=== PATIENT | female | born 1970 | race African-American/Black ===

== ENCOUNTER 2020-01-24 00:31 | Observation (INO) | payer SELFPAY ==
[2020-01-24] MEDS ORDERED: NITROGLYCERIN SUBLINGUAL 1/150 0.4 MG TAB SL ONE ×2 (01:00→01:05)
--- NOTE | 2020-01-24 01:04 | PDOC ---
Attending Attestation - Resident Resident Name: Marc Dempsey - ED Attending Attestation I have performed the following: I have examined & evaluated the patient, The case was reviewed & discussed with the resident, I agree w/resident's findings & plan - HPI HPI: 01/24/20 01:40 Pt comes with fatigue; she is obese and she has HTN and she has a SOLIS. She took HCTZ for the 1st time today and despite it, her BP is high - Physicial Exam PE: 01/24/20 01:41 Morbidly obese. Heart Lungs clear abd soft NT ND no flank pain no pitting edema of legs. - Medical Decision Making 01/24/20 01:42 Pt's BP is 130s now. 01/24/20 02:52 WBC normal 01/24/20 04:52 Chem is normal; K+ is slightly high, but it is a hemolyzed specimen Heart Score/ECG Review - History History: Highly suspicious - Electrocardiogram EKG: Normal - Age Age: 45-65 - Risk Factors Risk Factors Heart Score: Yes Hx Hypertension, Yes Hx Obesity Based on the list above the patient has:: 1-2 risk factors - Troponin Troponin: </= normal limit - Score Heart Score - Total: 4 Discharge - Discharge Information Problems reviewed: Yes Clinical Impression/Diagnosis: Chest pain, Hypertension - Follow up/Referral - Patient Discharge Instructions - Post Discharge Activity
--- NOTE | 2020-01-24 01:22 | PDOC ---
History of Present Illness - General Chief Complaint: Blood Pressure Problem Stated Complaint: HIGH BP Time Seen by Provider: 01/24/20 00:57 - History of Present Illness Initial Comments: 01/24/20 01:15 49 yo F PMH HTN, PCOS, presenting with high blood pressure. Patient states that she had previously had her blood pressure treated with HCTZ, however, she ran into a premium increase and has not been on any anti-hypertensive medications in several years. Notes that she normally cooks for herself, but ate something from [employer] today, noted home BP of 200s/100s. Complains of mild throbbing L sided headache. Endorses episode of chest pain radiating into her left arm earlier today, and ongoing fatigue. Denies SOB, N/V, fevers/chills, abd pain. Past History - Past Medical History Allergies/Adverse Reactions: Allergies Allergy/AdvReac Type Severity Reaction Status Date / Time Penicillins Allergy Difficulty Verified 01/24/20 00:48 Breathing Home Medications: Ambulatory Orders Amlodipine Besylate [Norvasc -] 5 mg PO DAILY #30 tablet 01/25/20 Atorvastatin Ca [Lipitor] 40 mg PO HS #30 tablet 01/25/20 Hydrochlorothiazide [Hctz -] 25 mg PO DAILY #30 tablet 01/25/20 Metformin HCl [Glucophage] 500 mg PO BID #60 tablet 01/25/20 Asthma: Yes COPD: No - Immunization History Immunization Up to Date: Yes - Psycho Social/Smoking Cessation Hx Smoking History: Never smoked Have you smoked in the past 12 months: No Information on smoking cessation initiated: No Hx Alcohol Use: No Drug/Substance Use Hx: No Substance Use Type: None Review of Systems - Review of Systems Comments:: 01/24/20 01:23 GENERAL/CONSTITUTIONAL: endorses fatigue. Denies fever, chills, diaphoresis, generalized weakness, malaise, loss of appetite, weight change HEAD, EYES, EARS, NOSE AND THROAT: denies rhinorrhea, nasal congestion, throat pain, throat swelling, difficulty swallowing, mouth swelling, ear pain, eye pa in, visual changes NEUROLOGIC: endorses throbbing mild L sided headache. Denies focal weakness or paresthesias, dizziness, unsteady gait, seizure, mental status changes, bladder or bowel incontinence CARDIOVASCULAR: endorses episode of chest pain radiating into L arm, now resolved. Denies syncope, palpitations, irregular heart rate, lightheadedness, peripheral edema RESPIRATORY: denies cough, shortness of breath, dyspnea with exertion, orthopnea, wheezing, stridor, hemoptysis GASTROINTESTINAL: denies abdominal pain, abdominal distension, nausea, vomiting, diarrhea, constipation, melena, hematochezia GENITOURINARY: denies dysuria, frequency, urgency, hesitancy, hematuria, flank pain, genital pain MUSCULOSKELETAL: denies myalgia, arthralgia, joint swelling, back pain, neck pain SKIN: denies rash, itching, pallor HEMATOLOGIC/IMMUNOLOGIC: denies easy bleeding, easy bruising, lymphadenopathy, frequent infections ENDOCRINE: denies unexplained weight gain, unexplained weight loss, heat intole meka, cold intolerance PSYCHIATRIC: denies anxiety, depression, suicidal or homicidal ideation, tonny lucinations *Physical Exam - Vital Signs Last Vital Signs Temp Pulse Resp BP Pulse Ox 97.7 F 76 20 202/93 H 98 01/24/20 00:48 01/24/20 00:48 01/24/20 00:48 01/24/20 00:48 01/24/20 00:48 - Physical Exam 01/24/20 01:23 Gen: well-developed, well-nourished, NAD Neuro: AAOX4, CN II-XII intact, FTN intact, EOMI, PERRLA, 5/5 strength, SILT HEENT: atraumatic, normocephalic Neck: trachea midline, supple CV: regular rate, regular rhythm, no murmurs, rubs, or gallops Pulm: CTA b/l, no wheezing Abd: soft, non-distended, non-tender MSK: full ROM, intact pulses Extr: no edema, no deformities Skin: warm, dry Heart Score/ECG Review - History History: Moderately suspicious - Electrocardiogram EKG: Normal - Age Age: 45-65 - Risk Factors Risk Factors Heart Score: Yes Hx Hypertension, Yes Positive family hx of cardiac disease, Yes Hx Obesity Based on the list above the patient has:: >/=3 risk factors or Hx atherosclerotic disease - Troponin Troponin: </= normal limit - Score Heart Score - Total: 4 ED Treatment Course - LABORATORY CBC & Chemistry Diagram: 01/24/20 06:00 01/24/20 06:00 Medical Decision Making - Medical Decision Making 01/24/20 01:22 Concern for hypertensive emergency. BP improved with nitroglycerin X2. - CBC, CMP - EKG, trop - CXR - PT & PTT - likely admit tele obs 01/24/20 02:00 EKG normal sinus at 84 bpm, no acute ischemia. 01/24/20 03:26 K 5.8, but with moderate hemolysis. Will resend. However, trop negative. Will admit. Discharge - Discharge Information Problems reviewed: Yes Clinical Impression/Diagnosis: Chest pain, Hypertension Condition: Stable - Follow up/Referral - Patient Discharge Instructions - Post Discharge Activity
[2020-01-24 02:38] LABS: BASO % 0.6 % (0-2.0); EOS % 1.8 % (0-4.5); HEMATOCRIT 40.1 % (32.4-45.2); HEMOGLOBIN 13.5 GM/dL (10.7-15.3); LYMPH % 37.9 % (8-40); MCHC 33.7 g/dl (32.0-36.0); MEAN CELL VOLUME 92.1 fl (80-96); MEAN PLT VOLUME 9.1 fl (7.5-11.1); MONO % 11.3 % (3.8-10.2); NEUT % 48.4 % (42.8-82.8); PLATELET COUNT 309 K/MM3 (134-434); RBC 4.35 M/mm3 (3.60-5.2); RDW 13.7 % (11.6-15.6); WHITE BLOOD COUNT 5.6 K/mm3 (4.0-10.0)
[2020-01-24] MEDS ORDERED: ASPIRIN 81 MG CHEWABLE TABLETS PO ONE (02:42)
[2020-01-24] MEDS ORDERED: FAMOTIDINE 20 MG/50 ML IVPB 20 MG/50 ML MG IVPB ONE ×2 (02:42→02:51)
[2020-01-24] MEDS ORDERED: MAG HYDROX/AL HYDROX/SIMETH 30 ML UNIT-DOSE CUP PO ONE (02:42)
[2020-01-24] MEDS ORDERED: MAG HYDROX/AL HYDROX/SIMETH 30 ML UNIT-DOSE CUP ONE (02:51)
[2020-01-24] MEDS ORDERED: ASPIRIN 81 MG CHEWABLE TABLETS ONE (02:51)
[2020-01-24 02:53] LABS: INR 0.97 (0.83-1.09); PROTHROMBIN TIME (PATIENT) 11.5 SEC (9.7-13.0)
[2020-01-24 02:55] LABS: ACTIVATED PTT 38.5 SECONDS (25.2-36.5)
[2020-01-24 03:21] LABS: ALBUMIN 3.2 g/dl (3.4-5.0); ALK PHOS 85 U/L (45-117); ANION GAP 9 MMOL/L (8-16); BILIRUBIN,TOTAL 0.4 mg/dL (0.2-1); BLOOD UREA NITROGEN 17.2 mg/dL (7-18); CALCIUM 8.7 mg/dL (8.5-10.1); CHLORIDE 104 mmol/L (98-107); CO2 24 mmol/L (21-32); GLUCOSE,RANDOM 133 mg/dL (74-106); SGOT/AST 67 U/L (15-37); SGPT/ALT 34 U/L (13-61); SODIUM 136 mmol/L (136-145); TOT PROT 8.1 g/dl (6.4-8.2)
[2020-01-24 03:27] LABS: POTASSIUM 5.8 mmol/L (3.5-5.1)
--- NOTE | 2020-01-24 04:12 | PN ---
Teaching Attending Note Name of Resident: [place] ATTENDING PHYSICIAN STATEMENT I saw and evaluated the patient. I reviewed the resident's note and discussed the case with the resident. I agree with the resident's findings and plan as documented. SUBJECTIVE: Patient is a 49 year old woman with a PMH of HTN, Penicillin allergy and PCOS wh o presents with high blood pressure. Patient states that she had previously had her blood pressure treated with HCTZ, however, she ran into a premium increase and has not been on any anti-hypertensive medications in several years. Notes that she normally cooks for herself, but ate something from [employer] today, noted home BP of 200s/100s. Complains of mild throbbing left sided headache. Also had an episode of chest pain radiating into her left arm earlier today and ongoing fatigue. Denies SOB, nausea, vomiting, diaphoresis, fevers, chills, abdominal pain, dysuria, diarrhea or urgency. Denies alcohol, tobacco or illicit drug use. No sick contacts or recent travels. OBJECTIVE: Alert Vital Signs Period Temp Pulse Resp BP Sys/Caba Pulse Ox Last 24 Hr 97.7 F 76-88 20-20 147-202/93-98 98-98 HEENT: No Jaundice, eye redness or discharge, PERRLA, EOMI. No papiledema; Normocephalic, atraumatic. External ears are normal and hearing is grossly intact. No nasal discharge. Neck: Supple, nontender. No palpable adenopathy or thyromegaly. No JVD Chest: Good effort. Clear to auscultation and percussion. Heart: Regular. No S3, rub or murmur Abdomen: Not distended, soft, nontender and no HSM. No rebound or guarding. Normal bowel sounds. Ext: Peripheral pulses intact. No leg edema. Skin: Warm and dry. No petechiae, rash or ecchymosis. Neuro: Alert. Oriented x3. CN 2-12 grossly intact. Sensation grossly intact in all four extremities and DTR are symmetric. Psych: Appropriate mood and affect. Good insight. Home Medications Medication Instructions Recorded NK [No Known Home Medication] 01/24/18 Abnormal Lab Results 01/24/20 01/24/20 01/24/20 02:20 02:20 02:20 Monocytes % 11.3 H PTT (Actin FS) 38.5 H Potassium 5.8 H Random Glucose 133 H AST 67 H Creatine Kinase 288 H Albumin 3.2 L ASSESSMENT AND PLAN: 1. Chest pain/Hypertensive emergency - EKG shows NSR with rate of 84/minute and no significant ST-T wave changes. Initial troponin is negative. Head CT scan result is pending. Got sublingual Nitroglycerine, IV Pepcid, Mylanta and Aspirin 162 mg in the ER. Her BP improved to 147/98. Will restart HCTZ at 12.5 mg q am and Lisinopril 20 mg po q pm. K+ of 5.8 meq/L is due to hemolysed sample - repeat BMP pending. Will get CXR, HbA1c, TSH, fasting lipids, Urinalysis, ECHO and monitor on telemetry to rule out ACS. Get kidney sonogram and refer to Nephrology for outpatient workup to rule out secondary hypertension. Will revise regimen to ensure [id number] excellent BP control and counseled patient on the injurious effects of uncontrolled hypertension. Nonpharmacologic measures to control hypertension like weight loss, salt restriction and exercise discussed. Importance of adherence to treatment regimen and attainment of normotension emphasized. Patient informed that she can purchase inexpensive generic antihypertensive drugs from [employer] Will continue comprehensive care for all of patients comorbid conditions. 2. Hypoalbuminemia - Possibly due to combined effects of malnutrition and inflammation associated with comorbid chronic conditions. Will ensure adequate dietary protein intake and also consult fire chief's aide. 3. Morbid Obesity Counseled on the risks associated with obesity. Will provide patient all the necessary assistance, counseling and positive reinforcement to facilitate weight loss. Consult fire chief's aide. 4. DVT prophylaxis - Lovenox 40 mg SQ q 12 hours. 5. Advance directives - Full code
--- NOTE | 2020-01-24 04:51 | HP ---
CHIEF COMPLAINT: Elevated Blood Pressure+Headache PCP: None HISTORY OF PRESENT ILLNESS: Patient is a 49 y/o F with a significant past medical history of uncontrolled hypertension presented to [facility] due to headache. Patient endorses that she awoke from sleep early this morning due to a throbbing headache; at this moment, patient measured her blood pressure which was " in the 180s". Patient subsequently drove to our Emergency Department. Of note, patient was recently seen at the [facility] for similar symptoms. Patient was placed on HCTZ 25 mg. Patient does endorse she took the medication a few hours before the start of her symptoms earlier this morning. Furthermore, patient also states she was experiencing discomfort on the left side of her chest. Patient does state that she has been having issues with her medical insurance and this has prevented her from establishing care with a primary care physician. SocialHx- Denies Tobacco use. Occasional alcoholic beverage FamHx- Father CO,HTN. Mother HTN. Sister Wilm's Tumor and Liver Failure SurgHx- Hysterectomy Allegies: Shellfish, Dogs, Cats ER course was notable for: (1) Nitro 0.4 X2 (2) BP 200 systolic (3) Allergies Penicillins Allergy (Verified 01/24/20 00:48) Difficulty Breathing HOME MEDICATIONS: Home Medications Medication Instructions Recorded NK [No Known Home Medication] 01/24/18 REVIEW OF SYSTEMS CONSTITUTIONAL: Absent: fever, chills, diaphoresis, generalized weakness, malaise, loss of appetite, weight change HEENT: Absent: rhinorrhea, nasal congestion, throat pain, throat swelling, difficulty swallowing, mouth swelling, ear pain, eye pain, visual changes CARDIOVASCULAR: Present chest pain RESPIRATORY: Absent: cough, shortness of breath, dyspnea with exertion, orthopnea, wheezing, stridor, hemoptysis GASTROINTESTINAL: Absent: abdominal pain, abdominal distension, nausea, vomiting, diarrhea, constipation, melena, hematochezia GENITOURINARY: Absent: dysuria, frequency, urgency, hesitancy, hematuria, flank pain, genital pain MUSCULOSKELETAL: Absent: myalgia, arthralgia, joint swelling, back pain, neck pain SKIN: Absent: rash, itching, pallor HEMATOLOGIC/IMMUNOLOGIC: Absent: easy bleeding, easy bruising, lymphadenopathy, frequent infections ENDOCRINE: Absent: unexplained weight gain, unexplained weight loss, heat intolerance, cold intolerance NEUROLOGIC: Present headache PSYCHIATRIC: Absent: anxiety, depression, suicidal or homicidal ideation, hallucinations. PHYSICAL EXAMINATION Vital Signs - 24 hr 01/24/20 01/24/20 00:48 02:20 Temperature 97.7 F Pulse Rate 76 Pulse Rate [ 88 Right Radial] Respiratory 20 20 Rate Blood Pressure 202/93 H Blood Pressure 147/98 [Left Arm] O2 Sat by Pulse 98 98 Oximetry (%) GENERAL: NAD. HEAD: Normal with no signs of trauma. EYES: EOMI Sclera Clear EARS, NOSE, THROAT: MMM NECK: Supple LUNGS: CTAB HEART: RRR S1S2 ABDOMEN: Soft, NDNT MUSCULOSKELETAL: FROM throughout LOWER EXTREMITIES: No pedel edema NEUROLOGICAL: Cranial nerves II-XII intact. Normal speech. PSYCHIATRIC: Cooperative. Good eye contact. Appropriate mood and affect. SKIN: Warm, dry, normal turgor, no rashes or lesions noted, normal capillary refill. Laboratory Results - last 24 hr 01/24/20 01/24/20 01/24/20 02:20 02:20 02:20 WBC 5.6 RBC 4.35 Hgb 13.5 Hct 40.1 MCV 92.1 MCH 31.0 MCHC 33.7 RDW 13.7 Plt Count 309 MPV 9.1 Absolute Neuts (auto) 2.7 Neutrophils % 48.4 Lymphocytes % 37.9 Monocytes % 11.3 H Eosinophils % 1.8 Basophils % 0.6 Nucleated RBC % 0 PT with INR 11.50 INR 0.97 PTT (Actin FS) 38.5 H Sodium Potassium Chloride Carbon Dioxide Anion Gap BUN Creatinine Est GFR (CKD-EPI)AfAm Est GFR (CKD-EPI)NonAf Random Glucose Calcium Total Bilirubin AST ALT Alkaline Phosphatase Creatine Kinase Creatine Kinase Index CK-MB (CK-2) Troponin I Total Protein Albumin Serum , Qual Negative 01/24/20 02:20 WBC RBC Hgb Hct MCV MCH MCHC RDW Plt Count MPV Absolute Neuts (auto) Neutrophils % Lymphocytes % Monocytes % Eosinophils % Basophils % Nucleated RBC % PT with INR INR PTT (Actin FS) Sodium 136 Potassium 5.8 H Chloride 104 Carbon Dioxide 24 Anion Gap 9 BUN 17.2 Creatinine 1.0 Est GFR (CKD-EPI)AfAm 76.07 Est GFR (CKD-EPI)NonAf 65.64 Random Glucose 133 H Calcium 8.7 Total Bilirubin 0.4 AST 67 H ALT 34 Alkaline Phosphatase 85 Creatine Kinase 288 H Creatine Kinase Index 0.7 CK-MB (CK-2) 2.2 Troponin I < 0.02 Total Protein 8.1 Albumin 3.2 L Serum , Qual ASSESSMENT/PLAN: Patient is a 49 y/o F with a significant past medical history of uncontrolled hypertension presented to [facility] due to headache. #Chest Pain/Headache likely 2/2 Hypertensive Emergency -BP reportedly 180s systolic at home. In ER, BP recorded as high as 202/93 -Administered 0.4 mg Nitro SL x2. Repeat BP 147/98 -EKG shows NSR with rate of 84/minute and no significant ST-T wave changes -Trop neg. Will repeat. ASA administered empirically. -Lisinopril 20 QHS, HCTZ 12.5 am -A1C, Lipid Profile -Echocardiogram to assess for any wall motion abnormalities -Renal Sono to assess for secondary causes of HTN -Tele Monitoring -Consider Renal Consult -Patient counseled on weight loss and decreasing foods high in sodium and carbohydrates. Also counseled regarding compliance with medications. #DVT prophylaxis - HEPSQTID #FEN -No standing Fluids -Monitor Electrolytes -Sodium Controlled Diet #Dispo -Tele Obs Visit type - Emergency Visit Emergency Visit: Yes ED Registration Date: 01/24/20 Care time: The patient presented to the Emergency Department on the above date and was hospitalized for further evaluation of their emergent condition. - New Patient This patient is new to me today: Yes Date on this admission: 01/24/20 - Critical Care Critical Care patient: No ATTENDING PHYSICIAN STATEMENT I saw and evaluated the patient. I reviewed the resident's note and discussed the case with the resident. I agree with the resident's findings and plan as documented. SUBJECTIVE: OBJECTIVE: ASSESSMENT AND PLAN:
[2020-01-24] MEDS ORDERED: VALSARTAN 40 MG TABLET (FP) PO ONE (04:55)
[2020-01-24 07:00] LABS: BASO % 0.5 % (0-2.0); EOS % 1.5 % (0-4.5); HEMATOCRIT 38.3 % (32.4-45.2); HEMOGLOBIN 12.9 GM/dL (10.7-15.3); LYMPH % 37.9 % (8-40); MCH 30.8 pg (25.7-33.7); MCHC 33.7 g/dl (32.0-36.0); MEAN CELL VOLUME 91.5 fl (80-96); MONO % 11.4 % (3.8-10.2); NEUT % 48.7 % (42.8-82.8); PLATELET COUNT 313 K/MM3 (134-434); RBC 4.18 M/mm3 (3.60-5.2); RDW 13.8 % (11.6-15.6); WHITE BLOOD COUNT 5.2 K/mm3 (4.0-10.0)
[2020-01-24 07:11] LABS: PROTHROMBIN TIME (PATIENT) 11.8 SEC (9.7-13.0)
[2020-01-24 07:14] LABS: ACTIVATED PTT 39.5 SECONDS (25.2-36.5)
[2020-01-24 07:44] LABS: ALBUMIN 3.3 g/dl (3.4-5.0); BILIRUBIN,TOTAL 0.5 mg/dL (0.2-1); BLOOD UREA NITROGEN 16.1 mg/dL (7-18); CALCIUM 8.7 mg/dL (8.5-10.1); CREATININE 0.9 mg/dL (0.55-1.3); MAGNESIUM 2.1 mg/dL (1.8-2.4); PHOSPHOROUS 5.1 mg/dL (2.5-4.9); POTASSIUM 4.2 mmol/L (3.5-5.1); TOT PROT 7.8 g/dl (6.4-8.2)
[2020-01-24] MEDS: INSULIN SLIDING SCALE (NOVOLOG) 1 VIAL SQ SCH ×2 (07:49→12:06)
--- NOTE | 2020-01-24 10:53 | EKG ---
Test Reason : Blood Pressure : / mmHG Vent. Rate : 084 BPM Atrial Rate : 084 BPM P-R Int : 152 ms QRS Dur : 086 ms QT Int : 376 ms P-R-T Axes : 041 011 012 degrees QTc Int : 444 ms NORMAL SINUS RHYTHM NORMAL ECG WHEN COMPARED WITH ECG OF 25-JAN-2018 00:31, NO SIGNIFICANT CHANGE WAS FOUND Confirmed by MD Rodrigues Daniel ([id number]) on 01/24/2020 10:53:05 AM Referred By: Confirmed By:Jarrod Rodrigues MD
[2020-01-24] MEDS ORDERED: PT OWN MED DRAWER 7, Y5N ONE (11:52)
[2020-01-24] MEDS: HYDROCHLOROTHIAZIDE 12.5 MG CAPSULE (FP) PO SCH (11:56)
[2020-01-24] MEDS: LISINOPRIL 20 MG TABLET (FP) PO SCH ×2 (11:56→12:03)
[2020-01-24] MEDS ORDERED: HYDROCHLOROTHIAZIDE 25 MG TABLET (FP) ONE (12:07)
--- NOTE | 2020-01-24 12:07 | CON.CARD ---
Consult Consult Specialty:: Cardiology Reason for Consultation:: HTN. Headache - History of Present Illness Chief Complaint: Headache History of Present Illness: This is a 49 year old female with a PMH of HTN. She was previously treated with HCTZ but stopped taking it several years ago. Earlier today, after eating food from [employer] (salty?), she took her BP at home and noted that her BP was elevated to 200/100 mmHg. At that time she felt her head throbbing. Later her BP measured in the 161/100 mmHg - Alcohol/Substance Use Hx Alcohol Use: No - Smoking History Smoking history: Never smoked Have you smoked in the past 12 months: No Home Medications - Allergies Allergies/Adverse Reactions: Allergies Allergy/AdvReac Type Severity Reaction Status Date / Time Penicillins Allergy Difficulty Verified 01/24/20 00:48 Breathing - Home Medications Home Medications: Ambulatory Orders Hydrochlorothiazide [Hctz -] 25 mg PO DAILY 01/24/20 Vital Signs: Vital Signs Temperature 98.5 F 01/24/20 11:45 Pulse Rate 91 H 01/24/20 11:45 Respiratory Rate 18 01/24/20 11:45 Blood Pressure 161/100 01/24/20 11:45 O2 Sat by Pulse Oximetry (%) 100 01/24/20 11:45 Constitutional: Yes: Well Nourished Eyes: Yes: WNL HENT: Yes: WNL Respiratory: Yes: CTA Bilaterally Gastrointestinal: Yes: Soft Cardiovascular: Yes: Regular Rate and Rhythm Extremities: Yes: WNL Edema: No - Other Data Labs, Other Data: CBC, BMP 01/24/20 06:00 01/24/20 06:00 INR, PTT INR 1.00 (0.83-1.09) 01/24/20 06:00 Troponin, BNP 01/24/20 02:20 Troponin I < 0.02 Troponin, BNP 01/24/20 02:20 Troponin I < 0.02 Assessment/Plan 49 year old female with a PMH of HTN. She was previously treated with HCTZ but stopped taking it several years ago. Earlier today, after eating food from [employer] (salty?), she took her BP at home and noted that her BP was elevated to 200/100 mmHg. At that time she felt her head throbbing. Later her BP measured in the 161/100 mmHg. Presently denies chest pain Trops neg, EKG no acute changes HTN Would favor a dihydropyridine calcium channel jaycob like Norvasc 5 mg PO daily This may be more effective than an HOME inhibitor such as lisinopril because she likely has low renin HTN She will need close outpatient follow up to assure adherence.
--- NOTE | 2020-01-24 15:27 | PN ---
Progress Note (short form) - Note Progress Note: SUBJECTIVE: CP, Headache, visual disturbance resolved. OBJECTIVE: Afebrle, Hemodynamically Stable. Last Vital Signs Temp Pulse Resp BP Pulse Ox 98.5 F 84 18 139/87 96 01/24/20 11:45 01/24/20 13:38 01/24/20 13:38 01/24/20 13:38 01/24/20 13:38 HEENT - Atraumatic, Normocephalic. Heart - S1, S2, RRR Lungs - clear to auscultation Abdomen - High BMI. Soft, non-tender. Bowel Sounds normal. Extremities - no edema, no calf tenderness. Neuro - AAO x 3. ADRIANA. Tone/Power normal all extremities. Laboratory Results - last 24 hr 01/24/20 01/24/20 01/24/20 02:20 02:20 02:20 WBC 5.6 RBC 4.35 Hgb 13.5 Hct 40.1 MCV 92.1 MCH 31.0 MCHC 33.7 RDW 13.7 Plt Count 309 MPV 9.1 Absolute Neuts (auto) 2.7 Neutrophils % 48.4 Lymphocytes % 37.9 Monocytes % 11.3 H Eosinophils % 1.8 Basophils % 0.6 Nucleated RBC % 0 PT with INR 11.50 INR 0.97 PTT (Actin FS) 38.5 H Sodium Potassium Chloride Carbon Dioxide Anion Gap BUN Creatinine Est GFR (CKD-EPI)AfAm Est GFR (CKD-EPI)NonAf POC Glucometer Random Glucose Hemoglobin A1c % Calcium Phosphorus Magnesium Total Bilirubin AST ALT Alkaline Phosphatase Creatine Kinase Creatine Kinase Index CK-MB (CK-2) Troponin I Total Protein Albumin Triglycerides Cholesterol Total LDL Cholesterol HDL Cholesterol Serum , Qual Negative 01/24/20 01/24/20 01/24/20 02:20 03:23 06:00 WBC RBC Hgb Hct MCV MCH MCHC RDW Plt Count MPV Absolute Neuts (auto) Neutrophils % Lymphocytes % Monocytes % Eosinophils % Basophils % Nucleated RBC % PT with INR INR PTT (Actin FS) Sodium 136 Cancelled Potassium 5.8 H Cancelled Chloride 104 Cancelled Carbon Dioxide 24 Cancelled Anion Gap 9 Cancelled BUN 17.2 Cancelled Creatinine 1.0 Cancelled Est GFR (CKD-EPI)AfAm 76.07 Cancelled Est GFR (CKD-EPI)NonAf 65.64 Cancelled POC Glucometer Random Glucose 133 H Cancelled Hemoglobin A1c % 6.9 H Calcium 8.7 Cancelled Phosphorus Magnesium Total Bilirubin 0.4 Cancelled AST 67 H Cancelled ALT 34 Cancelled Alkaline Phosphatase 85 Cancelled Creatine Kinase 288 H Creatine Kinase Index 0.7 CK-MB (CK-2) 2.2 Troponin I < 0.02 Total Protein 8.1 Cancelled Albumin 3.2 L Cancelled Triglycerides Cholesterol Total LDL Cholesterol HDL Cholesterol Serum , Qual 01/24/20 01/24/20 01/24/20 06:00 06:00 06:00 WBC 5.2 RBC 4.18 Hgb 12.9 Hct 38.3 MCV 91.5 MCH 30.8 MCHC 33.7 RDW 13.8 Plt Count 313 MPV 9.0 Absolute Neuts (auto) 2.5 Neutrophils % 48.7 Lymphocytes % 37.9 Monocytes % 11.4 H Eosinophils % 1.5 Basophils % 0.5 Nucleated RBC % 0 PT with INR 11.80 INR 1.00 PTT (Actin FS) 39.5 H Sodium 140 Potassium 4.2 Chloride 105 Carbon Dioxide 28 Anion Gap 7 L BUN 16.1 Creatinine 0.9 Est GFR (CKD-EPI)AfAm 86.41 Est GFR (CKD-EPI)NonAf 74.55 POC Glucometer Random Glucose 122 H Hemoglobin A1c % Calcium 8.7 Phosphorus 5.1 H Magnesium 2.1 Total Bilirubin 0.5 AST 19 ALT 28 Alkaline Phosphatase 89 Creatine Kinase Creatine Kinase Index CK-MB (CK-2) Troponin I Total Protein 7.8 Albumin 3.3 L Triglycerides 84 Cholesterol 182 Total LDL Cholesterol 111 H HDL Cholesterol 51 Serum , Qual 01/24/20 12:00 WBC RBC Hgb Hct MCV MCH MCHC RDW Plt Count MPV Absolute Neuts (auto) Neutrophils % Lymphocytes % Monocytes % Eosinophils % Basophils % Nucleated RBC % PT with INR INR PTT (Actin FS) Sodium Potassium Chloride Carbon Dioxide Anion Gap BUN Creatinine Est GFR (CKD-EPI)AfAm Est GFR (CKD-EPI)NonAf POC Glucometer 145 Random Glucose Hemoglobin A1c % Calcium Phosphorus Magnesium Total Bilirubin AST ALT Alkaline Phosphatase Creatine Kinase Creatine Kinase Index CK-MB (CK-2) Troponin I Total Protein Albumin Triglycerides Cholesterol Total LDL Cholesterol HDL Cholesterol Serum , Qual Current Medications Generic Name Dose Route Start Last Admin Trade Name Freq PRN Reason Stop Dose Admin Amlodipine Besylate 5 mg 01/25/20 10:00 Norvasc - PO DAILY LALO Amlodipine Besylate 5 mg 01/24/20 15:30 Norvasc - PO 01/24/20 15:31 ONCE ONE Hydrochlorothiazide 12.5 mg 01/24/20 10:00 01/24/20 11:56 Hctz - PO 12.5 mg DAILY [facility] Administration Home Medications Medication Instructions Recorded Hydrochlorothiazide [Hctz -] 25 mg PO DAILY 01/24/20 ASSESSMENT/PLAN: 49 year old female with history of known JORGE LUIS (does not have CPAP), HTN, presented with Headache, visual disturbance, and L sided CP with radiation to L shoulder, found to have Hypertensive Urgency. She was just started on HCTZ 25mg the day prior but her SBP was > 180 when she checked at home after developing the above symptoms. In ED SBP>200. 1. Hypertensive Urgency with associated Headache/visual disturbance and CP Symptoms now resolved, BP normalizing. CT Head - no acute findings ECG - no acute ST/T wave changes. TropI negative. CXR - no acute cardiopulmonary findings. Seen by Cardiology - recommend HCTZ and Norvasc. Will continue to monitor. Echo in AM 2. Mild Hydronephrosis on Renal US, incidental finding. No flank pain/dysuria/hematuria/renal impairment. Urology consult for further investigation/management. UA requested. 3. Known JORGE LUIS, does not have CPAP at home Will need Pulmonary referral on discharge as eported positve sleep study was > 2years ago, patient never able to get CPAP device. DVT Px - Heparin SQ Visit type - Emergency Visit Emergency Visit: Yes ED Registration Date: 01/24/20 Care time: The patient presented to the Emergency Department on the above date and was hospitalized for further evaluation of their emergent condition. - New Patient This patient is new to me today: Yes Date on this admission: 01/25/20 - Critical Care Critical Care patient: No - Discharge Referral Referred to [facility] Med P.C.: No
[2020-01-24] MEDS ORDERED: amLODIPine BESYLATE 5 MG TABLET (FP) ONE (15:29)
[2020-01-24] MEDS ORDERED: amLODIPine BESYLATE 5 MG TABLET (FP) PO ONE (15:30)
[2020-01-24 18:58] LABS: EPI CELLS 4 /HPF (0-5/HPF); HYALINE CASTS 1 /lpf (0-8); URINE APPEARANCE CLEAR; URINE BACTERIA 196 /hpf (NEGATIVE); URINE BILIRUBIN NEGATIVE (NEGATIVE); URINE COLOR YELLOW; URINE GLUCOSE (UA) NEGATIVE (NEGATIVE); URINE KETONE NEGATIVE (NEGATIVE); URINE LEUK ESTERASE NEGATIVE (NEGATIVE); URINE NITRITE NEGATIVE (NEGATIVE); URINE PROTEIN NEGATIVE (NEGATIVE); URINE RBC 33 /hpf (0-4); URINE UROBILINOGEN 0.2 mg/dL (0.2-1.0)
[2020-01-24 20:01] LABS: URINE WBC 9.6 /hpf (0-5)
[2020-01-25 05:06] VITALS: BMI 52.1
[2020-01-25] MEDS ORDERED: POLYETHYLENE GLYCOL 3350 119 GM BTL PO ONE (07:38)
[2020-01-25] MEDS: amLODIPine BESYLATE 5 MG TABLET (FP) PO SCH (09:33)
[2020-01-25] MEDS: HYDROCHLOROTHIAZIDE 12.5 MG CAPSULE (FP) PO SCH (09:33)
[2020-01-25] MEDS ORDERED: HYDROCHLOROTHIAZIDE 12.5 MG CAPSULE (FP) PO SCH (10:19)
[2020-01-25] MEDS ORDERED: HYDROCHLOROTHIAZIDE 12.5 MG CAPSULE (FP) PO ONE (10:19)
--- NOTE | 2020-01-25 10:50 | PN ---
Teaching Attending Note Name of Resident: Saurav Deutsch ATTENDING PHYSICIAN STATEMENT I saw and evaluated the patient. I reviewed the resident's note and discussed the case with the resident. I agree with the resident's findings and plan as documented. SUBJECTIVE: CP, Headache, visual disturbance resolved. OBJECTIVE: Afebrle, Hemodynamically Stable. Last Vital Signs Temp Pulse Resp BP Pulse Ox 98.2 F 85 16 135/60 97 01/25/20 08:00 01/25/20 08:00 01/25/20 08:00 01/25/20 08:00 01/25/20 04:46 Heart - S1, S2, RRR Lungs - clear to auscultation Abdomen - High BMI. Soft, non-tender. Bowel Sounds normal. Extremities - no edema, no calf tenderness. Neuro - AAO x 3. ADRIANA. Tone/Power normal all extremities. Laboratory Results - last 24 hr 01/24/20 01/24/20 01/24/20 12:00 17:00 17:22 POC Glucometer 145 88 Troponin I < 0.02 Urine Color Urine Appearance Urine pH Ur Specific [place] Urine Protein Urine Glucose (UA) Urine Ketones Urine Blood Urine Nitrite Urine Bilirubin Urine Urobilinogen Ur Leukocyte Esterase Urine WBC (Auto) Urine RBC (Auto) Urine Casts (Auto) U Epithel Cells (Auto) Urine Bacteria (Auto) 01/24/20 17:30 POC Glucometer Troponin I Urine Color Yellow Urine Appearance Clear Urine pH 6.0 Ur Specific [place] 1.013 Urine Protein Negative Urine Glucose (UA) Negative Urine Ketones Negative Urine Blood Trace Urine Nitrite Negative Urine Bilirubin Negative Urine Urobilinogen 0.2 Ur Leukocyte Esterase Negative Urine WBC (Auto) 9.6 Urine RBC (Auto) 33 Urine Casts (Auto) 1 U Epithel Cells (Auto) 4 Urine Bacteria (Auto) 196 Current Medications Generic Name Dose Route Start Last Admin Trade Name Freq PRN Reason Stop Dose Admin Amlodipine Besylate 5 mg 01/25/20 10:00 01/25/20 09:33 Norvasc - PO 5 mg DAILY LALO Administration Atorvastatin Calcium 80 mg 01/25/20 22:00 Lipitor - PO HS LALO Hydrochlorothiazide 25 mg 01/25/20 10:19 Hctz - PO DAILY LALO Insulin Aspart 1 vial 01/25/20 11:00 Novolog Vial Sliding Scale - SQ ACHS LALO Protocol Home Medications Medication Instructions Recorded Amlodipine Besylate [Norvasc -] 5 mg PO DAILY #30 tablet 01/25/20 Atorvastatin Ca [Lipitor] 80 mg PO HS #30 tablet 01/25/20 Hydrochlorothiazide [Hctz -] 25 mg PO DAILY #30 tablet 01/25/20 Metformin HCl [Glucophage] 500 mg PO BID #60 tablet 01/25/20 ASSESSMENT/PLAN: 49 year old female with history of known JORGE LUIS (does not have CPAP), HTN, presented with Headache, visual disturbance, and L sided CP with radiation to L shoulder, found to have Hypertensive Urgency. She was just started on HCTZ 25mg the day prior but her SBP was > 180 when she checked at home after developing the above symptoms. In ED SBP>200. 1. Hypertensive Urgency with associated Headache/visual disturbance and CP Symptoms now resolved, BP normalizing. CT Head - no acute findings ECG - no acute St/T wave changes. TropI negative. CXR - no acute cardiopulmonary findings. Seen by Cardiology - recommend HCTZ and Norvasc. Renal function/electrolyte check in 2 weeks. Echo pending. Medically and hemodynamically stable for discharge s/p Echo (if no significant abnormality). 2. Mild Hydronephrosis on Renal US, incidental finding. No flank pain/dysuria/hematuria/renal impairment. Urology consult for further investigation/management, may likely be out-patient, awaiting Urology recommendations prior to discharge. 3. Known JORGE LUIS, does not have CPAP at home Will need Pulmonary referral on discharge as reported positive sleep study was > 2 years ago, patient was not previously able to get CPAP device. 4. Newly diagnosed DM 2. A1C 6.9. Will start Metformin 500mg BID on discharge with resident clinic follow up. 5. Hyperlipidemia - LDL above target. Will start Statin. Out-patient LFTs in 2-3 weeks. DVT Px - Heparin SQ
[2020-01-25] MEDS: INSULIN SLIDING SCALE (NOVOLOG) 1 VIAL SQ SCH ×3 (12:17→21:23)
--- NOTE | 2020-01-25 13:00 | ECHO ---
Version: 1 Name: KAREN CARABALLO Exam: Adult Echocardiogram Study Date: 01/25/2020, 11:16 AM Age: 49 Years MMode/2D Measurements & Calculations IVSd: 1.15 cm LVIDs: 3.0 cm LVIDd: 4.3 cm LVPWd: 1.35 cm LVOT diam: 2.12 cm Ao root diam: 2.8 cm LA dimension: 2.6 cm Doppler Measurements & Calculations MV E max stuart: 45.4 cm/sec Med E/e': 8.3 MV A max stuart: 69.6 cm/sec Med Peak E' Stuart: 5.5 cm/sec MV E/A: 0.65 Lat E/e': 5.5 Lat Peak E' Stuart: 8.2 cm/sec Ao max P.3 mmHg Ao V2 max: 134.4 cm/sec Procedure A complete two-dimensional transthoracic echocardiogram was performed (2D, M-mode, Doppler and color flow Doppler). Technically limited study. Left Ventricle The left ventricle is normal in size. There is mild concentric left ventricular hypertrophy. Left ve ntricular systolic function is normal. Ejection Fraction = 60-65%. Grade I diastolic dysfunction, (abnormal re laxation pattern). Ratio E/E'= 8. No regional wall motion abnormalities noted. Right Ventricle The right ventricle is normal size. The right ventricular systolic function is normal. Atria The left atrial size is normal. Right atrial size is normal. Mitral Valve There is mild mitral annular calcification. There is no mitral regurgitation noted. Tricuspid Valve The tricuspid valve is normal in structure and function. There is mild tricuspid regurgitation. Aortic Valve There is mild aortic sclerosis.;. No aortic regurgitation is present. Pulmonic Valve The pulmonic valve is not well visualized. Great Vessels The aortic root is normal size. Pericardium/Pleura There is no pericardial effusion. Summary Statements A complete two-dimensional transthoracic echocardiogram was performed (2D, M-mode, Doppler and color flow Doppler). Technically limited study The left ventricle is normal in size. There is mild concentric left ventricular hypertrophy. Left ventricular systolic function is normal. No regional wall motion abnormalities noted. Ejection Fraction = 60-65%. Grade I diastolic dysfunction, (abnormal relaxation pattern). Ratio E/E'= 8 There is mild mitral annular calcification. There is mild tricuspid regurgitation. There is mild aortic sclerosis.; There is no pericardial effusion. Carlton Lira MD 01/25/2020, 1:00 PM Ordering Physician: Farrah Catherine Referring Physician: FARRAH CATHERINE Performed By: Shelby Mcduffie
--- NOTE | 2020-01-25 15:12 | CON.GU ---
Consult Consult Specialty:: Referred by:: Medicine Reason for Consultation:: hydronephrosis - History of Present Illness Chief Complaint: hydronephrosis History of Present Illness: patient admitted with uncontrolled HTN. US revealed incidental mild right hydronephrosis. She is asymptomatic from this finding. UA is normal. GFR is normal - History Source History Provided By: Patient Limitations to Obtaining History: No Limitations - Past Medical History Renal/: No: Renal Failure, Renal Inusuff, BPH, Cancer, Hematuria, Hemodialysis, Neurogenic Bladder, Renal Calculi, UTI, Other ...: No - Alcohol/Substance Use Hx Alcohol Use: No - Smoking History Smoking history: Never smoked Have you smoked in the past 12 months: No Home Medications - Allergies Allergies/Adverse Reactions: Allergies Allergy/AdvReac Type Severity Reaction Status Date / Time Penicillins Allergy Difficulty Verified 01/24/20 00:48 Breathing - Home Medications Home Medications: Ambulatory Orders Amlodipine Besylate [Norvasc -] 5 mg PO DAILY #30 tablet 01/25/20 Atorvastatin Ca [Lipitor] 40 mg PO HS #30 tablet 01/25/20 Hydrochlorothiazide [Hctz -] 25 mg PO DAILY #30 tablet 01/25/20 Metformin HCl [Glucophage] 500 mg PO BID #60 tablet 01/25/20 Miscellaneous Medical Supply [Glucometer Device] 1 each SQ ASDIR #1 kit 01/25/20 Miscellaneous Medical Supply [Glucometer Test Strips #100] 1 each SQ ASDIR #1 box 01/25/20 Review of Systems - Review of Systems Genitourinary: reports: No Symptoms Physical Exam- Vital Signs: Vital Signs Temperature 98.1 F 01/25/20 12:00 Pulse Rate 96 H 01/25/20 12:00 Respiratory Rate 18 01/25/20 12:00 Blood Pressure 149/88 01/25/20 12:00 O2 Sat by Pulse Oximetry (%) 96 01/25/20 12:00 Renal/: No: CVA Tenderness - Left, CVA Tenderness - Right Labs: CBC, BMP 01/24/20 06:00 01/24/20 06:00 Problem List - Problems (1) Hydronephrosis, right Assessment/Plan: recommend non contrast CT to r/o distal obstruction Code(s): N13.30 - UNSPECIFIED HYDRONEPHROSIS
--- NOTE | 2020-01-25 17:11 | PN ---
Physical Exam: SUBJECTIVE: Patient seen and examined at the bedside. Stated that she felt better. Noted that her headache, chest pain had resolved. Denied sob, abd pain, n/v/c/d, fever, chills, dizziness, lightheadedness, numbness, tingling, focal weakness. OBJECTIVE: Vital Signs Period Temp Pulse Resp BP Sys/[place] Pulse Ox Last 24 Hr 97.7 F-98.2 F 50-97 16-18 135-170/60-107 96-98 GENERAL: The patient is awake, alert, and fully oriented, in no acute distress. EYES: PERRL, extraocular movements intact, conjunctiva clear. . ENT: Oropharynx clear without exudates, moist mucous membranes. LUNGS: Breath sounds equal, clear to auscultation bilaterally, no wheezes, no crackles, no accessory muscle use. HEART: Regular rate and rhythm, S1, S2 without murmur. ABDOMEN: Soft, obese, non-tender, nondistended, normoactive bowel sounds, no guarding, no rebound, no masses. EXTREMITIES: 2+ pulses, warm, well-perfused, no edema. NEUROLOGICAL: Cranial nerves II through XII grossly intact. 5/5 muscle strength upper and lower extremities bilaterally. PSYCH: Normal mood, normal affect. SKIN: Warm, dry, normal turgor, no rashes or lesions noted. Laboratory Results - last 24 hr 01/24/20 01/24/20 01/24/20 17:00 17:22 17:30 POC Glucometer 88 Troponin I < 0.02 Urine Color Yellow Urine Appearance Clear Urine pH 6.0 Ur Specific [place] 1.013 Urine Protein Negative Urine Glucose (UA) Negative Urine Ketones Negative Urine Blood Trace Urine Nitrite Negative Urine Bilirubin Negative Urine Urobilinogen 0.2 Ur Leukocyte Esterase Negative Urine WBC (Auto) 9.6 Urine RBC (Auto) 33 Urine Casts (Auto) 1 U Epithel Cells (Auto) 4 Urine Bacteria (Auto) 196 01/25/20 01/25/20 12:14 16:41 POC Glucometer 98 121 Troponin I Urine Color Urine Appearance Urine pH Ur Specific [place] Urine Protein Urine Glucose (UA) Urine Ketones Urine Blood Urine Nitrite Urine Bilirubin Urine Urobilinogen Ur Leukocyte Esterase Urine WBC (Auto) Urine RBC (Auto) Urine Casts (Auto) U Epithel Cells (Auto) Urine Bacteria (Auto) Active Medications Generic Name Dose Route Start Last Admin Trade Name Freq PRN Reason Stop Dose Admin Amlodipine Besylate 5 mg 01/25/20 10:00 01/25/20 09:33 Norvasc - PO 5 mg DAILY LALO Administration Atorvastatin Calcium 40 mg 01/25/20 22:00 Lipitor - PO HS LALO Hydrochlorothiazide 25 mg 01/25/20 10:19 Hctz - PO DAILY REPLACED BY [facility] Insulin Aspart 1 vial 01/25/20 11:00 01/25/20 12:17 Novolog Vial Sliding Scale - SQ Not Given ACHS REPLACED BY [facility] Protocol ASSESSMENT/PLAN: Acacia Hwang is a 49 year old female with a significant past medical history of uncontrolled hypertension admitted with hypertensive emergency. Chest Pain/Headache likely 2/2 Hypertensive Emergency - BP reportedly 180s systolic at home. In ER, BP recorded as high as 202/93 - Administered 0.4 mg Nitro SL x2. Repeat BP 147/98, BP have been well controlled - EKG shows NSR with rate of 84/minute and no significant ST-T wave changes - Trop x2 negative - HCTZ 25mg and amlodipine 5mg - Echocardiogram noting mild concentric LVH, grade I diastolic dysfunction, EF 60-65%, mild tricuspid regurg, mild mitral annular calcification, mild aortic sclerosis, - cardiac monitoring - Patient counseled on weight loss and decreasing foods high in sodium and carbohydrates and counseled regarding compliance with medications - cardiology consulted, recs appreciated - ASCVD 18.0%, started on atorvastatin 40mg Ventricular Bigeminy - noted on monitor - cardiology consulted for further recs New Onset Diabetes - A1c 6.9 - started BGM and ISS - will be started on metformin 500mg bid and advised on close outpatient follow up Renal Ultrasound Noting R sided hydronephrosis - urology consulted - CT abdomen pelvis noting 0.5x0.5cm UPJ stone, discussed with urology as long as patient is asymptomatic, no WBC then patient is clear from urology perspective and can follow up as an outpatient Known JORGE LUIS - will need outpatient pulmnology follow up DVT PPx - heparin 5000 units subq tid FEN - No standing Fluids - continue to monitor electrolytes and replete as necessary - Sodium Controlled Diet Dispo - continue to monitor on telemetry Visit type - Emergency Visit Emergency Visit: Yes ED Registration Date: 01/24/20 Care time: The patient presented to the Emergency Department on the above date and was hospitalized for further evaluation of their emergent condition. - New Patient This patient is new to me today: Yes Date on this admission: 01/25/20 - Critical Care Critical Care patient: No
[2020-01-25] MEDS ORDERED: ATORVASTATIN CA 80 MG TABLET (FP) PO SCH ×2 (22:00)
[2020-01-26 05:50] VITALS: TEMP 98.1
[2020-01-26] MEDS: INSULIN SLIDING SCALE (NOVOLOG) 1 VIAL SQ SCH ×2 (06:03→10:57)
[2020-01-26 07:08] LABS: CALCIUM 8.8 mg/dL (8.5-10.1); CREATININE 0.9 mg/dL (0.55-1.3); MAGNESIUM 2.4 mg/dL (1.8-2.4); PHOSPHOROUS 4.7 mg/dL (2.5-4.9); POTASSIUM 4.3 mmol/L (3.5-5.1)
[2020-01-26 10:27] VITALS: BP 128/66; PULSE 92
[2020-01-26] MEDS: amLODIPine BESYLATE 5 MG TABLET (FP) PO SCH (10:59)
--- NOTE | 2020-01-26 14:15 | DS ---
Physical Exam: SUBJECTIVE: Patient seen and examined at the bedside. Stated that she felt much better. Denied any acute events overnight. Denied any acute complaints of cp, sob, abd pain, n/v/c/d, headaches, dizziness, lightheadedness, fever, chills, focal weakness, numbness, tingling. OBJECTIVE: Vital Signs Period Temp Pulse Resp BP Sys/Caba Pulse Ox Last 24 Hr 97.8 F-98.9 F 69-92 18-18 128-165/66-85 98-98 PHYSICAL EXAM GENERAL: The patient is awake, alert, and fully oriented, in no acute distress. EYES: PERRL, extraocular movements intact, conjunctiva clear. ENT: Oropharynx clear without exudates, moist mucous membranes. LUNGS: Breath sounds equal, clear to auscultation bilaterally, no wheezes, no crackles, no accessory muscle use. HEART: Regular rate and rhythm, S1, S2 without murmur. ABDOMEN: Soft, obese, non-tender, nondistended, normoactive bowel sounds, no guarding, no rebound, no masses. EXTREMITIES: 2+ pulses, warm, well-perfused, no edema. NEUROLOGICAL: Cranial nerves II through XII grossly intact. 5/5 muscle strength upper and lower extremities bilaterally. PSYCH: Normal mood, normal affect. SKIN: Warm, dry, normal turgor, no rashes or lesions noted. LABS Laboratory Results - last 24 hr 01/25/20 01/25/20 01/26/20 16:41 20:44 05:33 Sodium Potassium Chloride Carbon Dioxide Anion Gap BUN Creatinine Est GFR (CKD-EPI)AfAm Est GFR (CKD-EPI)NonAf POC Glucometer 121 123 133 Random Glucose Calcium Phosphorus Magnesium 01/26/20 01/26/20 06:00 10:56 Sodium 138 Potassium 4.3 Chloride 103 Carbon Dioxide 27 Anion Gap 8 BUN 17.0 Creatinine 0.9 Est GFR (CKD-EPI)AfAm 86.41 Est GFR (CKD-EPI)NonAf 74.55 POC Glucometer 118 Random Glucose 129 H Calcium 8.8 Phosphorus 4.7 Magnesium 2.4 HOSPITAL COURSE: Acacia Hwang is a 49 year old female with a significant past medical history of uncontrolled hypertension admitted with hypertensive emergency. Had nitro SL administered with improvement of blood pressure. Was started on HCTZ 25mg, amlodipine 5mg. EKG showed NSR with rate of 84/minute and no significant ST-T wave changes with 2 negative troponins. Echo noted mild concentric LVH, grade I diastolic dysfunction, EF 60-65%, mild tricuspid regurg, mild mitral annular calcification, mild aortic sclerosis. Patient was counseled on weight loss. ASCVD score was calculated at 18.0% and patient was started on atorvastatin 40mg. Had ventricular bigeminy as noted on monitor for which cardiology was consulted and noted that the patient should follow up with outpatient cardiology and continued current medical management. A1c was noted at 6.9 and patient was diagnosed with new onset diabetes, she was started on metformin 500mg bid and advised for close outpatient follow up with PCP, podiatry, ophthalmology. Renal U/S noted R sided hydronephrosis, f/u CT scan noted 0.5x0.5cm UPJ stone, discussed with urology as long as patient is asymptomatic, no WBC then patient is clear from urology perspective and can follow up as an outpatient. Patient with known JORGE LUIS and advised to follow up pulmonology outpatient. Patient was started on metformin 500mg bid, glucometer and strips, atorvastatin 40mg daily, HCTZ 25mg daily, amlodipine 5mg daily and advised to follow up with PCP, cardiology, urologist, slip seat coverer, evaluator transfer students, opthalmologist. Was advised to have repeat labwork to assess liver and kidney function in 2 weeks and advised to cease taking atorvastatin if she develops muscle pain. Patient was advised of the plan, was in agreement, and reiterated the plan. Patient was discharged in stable medical condition. Date of Admission:01/24/20 Date of Discharge: 01/26/20 Minutes to complete discharge: 35 Discharge Summary Problems reviewed: Yes Reason For Visit: CHEST PAIN,HYPERTENSION Condition: Stable - Instructions Diet, Activity, Other Instructions: You were admitted after you had headache which was likely related to your elevated blood pressure. Your blood pressure was controlled while you admitted and your medications were amended while you were hospitalized. You had an echocardiogram (ultrasound of the heart) which showed mild enlargement of the heart, impaired relaxation of the heart, and some mild valve abnormalities. You are advised to follow up with a pot puncher for these findings. While you were admitted you were noted to have an elevated A1c (marker of diabetes) and started on a medication to control diabetes. You were also noted to be at an elevated risk of a cardiovascular event and were started on a cholesterol medication to help decrease the risk. You were noted on a kidney ultrasound to have a dilation of your ureter (tube that takes urine from the kidney to the bladder). You had a CT scan of your abdomen which showed that you have a stone in your ureter. You are recommended to follow up with a urologist for these findings. MEDICATIONS START to take atorvastatin 40mg every night. START to take amlodipine 5mg every day. START to take hydrochlorothiazide 25mg every day. START to take metformin 500mg twice a day. REFERRALS Please see your primary care provider within 1 week. If you do not have a primary care provider, you may follow up at the resident's clinic for which the information is provided. Please follow up with the pot puncher, Dr. Rodrigues, within 1 week. Please follow up with the urologist, Dr. Lynn, within 1 week. Please follow up with the slip seat coverer, Dr. Saenz within 1 week. Please follow up with the evaluator transfer students, Dr. Terry, within 2 weeks. Please follow up with the drill press operator helper, Dr. Taylor, within 3 weeks. SPECIAL INSTRUCTIONS Have follow up labwork to investigate your liver and kidney function in 2 weeks. If your liver function decreases you will need to discuss with your providers about lowering your dose of the cholesterol medication. If you begin to develop muscle pains, please stop taking atorvastatin and see your doctor right away. You are advised to follow up with a evaluator transfer students and have a follow up with an drill press operator helper for eye checks. Please follow up closely with your primary care provider for your newly diagnosed diabetes. If you have any further symptoms of chest pain, shortness of breath, extreme headaches, fevers, confusion, lightheadedness, falls, or any other general feelings of unwellness, please call 911 or go to your nearest emergency room. Referrals: [facility] [place] [facility] [place] [Provider Group] - 1 Week Orlando Terry MD [Staff Physician] - 2 Weeks Zion Saenz MD [Staff Physician] - 1 Week Ba Lynn MD., MD [Staff Physician] - 1 Week Jarrod Rodrigues MD [Staff Physician] - 1 Week Trav Taylor MD [Staff Physician] - 3 Weeks Disposition: HOME - Home Medications Comprehensive Discharge Medication List: Ambulatory Orders Amlodipine Besylate [Norvasc -] 5 mg PO DAILY #30 tablet 01/25/20 Atorvastatin Ca [Lipitor] 40 mg PO HS #30 tablet 01/25/20 Hydrochlorothiazide [Hctz -] 25 mg PO DAILY #30 tablet 01/25/20 Metformin HCl [Glucophage] 500 mg PO BID #60 tablet 01/25/20 Miscellaneous Medical Supply [Glucometer Device] 1 each SQ ASDIR #1 kit 01/25/20 Miscellaneous Medical Supply [Glucometer Test Strips #100] 1 each SQ ASDIR #1 box 01/25/20 This patient is new to me today: No Emergency Visit: Yes ED Registration Date: 01/24/20 Care time: The patient presented to the Emergency Department on the above date and was hospitalized for further evaluation of their emergent condition. Critical Care patient: No - Discharge Referral Referred to [facility] No
== END 2020-01-26 13:45 | disposition home or self-care (01) ==
LOC: JER 00:31 → JERBED 03:28 → J4S 01-25 04:47
PROVIDERS: ADMIT Internal Medicine; ATTEND Internal Medicine
PROC: 3E033GC Introduction of Other Therapeutic Substance into Peripheral Vein, Percutaneous Approach (ICD-10-PCS; principal; 2020-01-24)
DX: I16.1 Hypertensive emergency (principal); R07.89 Other chest pain; G44.89 Other headache syndrome; I10 Essential (primary) hypertension; R77.0 Abnormality of albumin; N13.39 Other hydronephrosis; G47.33 Obstructive sleep apnea (adult) (pediatric); I49.8 Other specified cardiac arrhythmias; E11.9 Type 2 diabetes mellitus without complications; E28.2 Polycystic ovarian syndrome; J45.909 Unspecified asthma, uncomplicated; E66.01 Morbid (severe) obesity due to excess calories; Z68.43 Body mass index [BMI] 50.0-59.9, adult; Z79.84 Long term (current) use of oral hypoglycemic drugs; Z88.0 Allergy status to penicillin
CPT/HCPCS: 36415; 70450-TC; 71046-TC-FY; 74176-TC; 76775-TC; 80048; 80053; 80061; 81003; 82550; 82553; 82962; 83036; 83721; 83735; 84100; 84484; 84703; 85025; 85610; 85730; 93005; 93010; 93306-TC; 99285-25; G0378

== ENCOUNTER 2022-05-26 13:10 | Emergency (ER) | payer OTHER ==
[2022-05-26 13:33] VITALS: TEMP 98; BMI 51.6
[2022-05-26 14:40] LABS: BASO % 0.4 % (0-2.0); EOS % 1.2 % (0-4.5); HEMATOCRIT 37.3 % (32.4-45.2); HEMOGLOBIN 12.5 GM/dL (10.7-15.3); LYMPH % 36.4 % (8-40); MCH 30.5 pg (25.7-33.7); MCHC 33.6 g/dl (32.0-36.0); MEAN CELL VOLUME 90.7 fl (80-96); MEAN PLT VOLUME 7.6 fl (7.5-11.1); MONO % 8.3 % (3.8-10.2); NEUT % 53.7 % (42.8-82.8); PLATELET COUNT 340 10^3/uL (134-434); RBC 4.11 M/mm3 (3.60-5.2); WHITE BLOOD COUNT 5.7 K/mm3 (4.0-10.0)
[2022-05-26] MEDS ORDERED: ASPIRIN 81 MG CHEWABLE TABLETS PO ONE (14:42)
[2022-05-26] MEDS ORDERED: ASPIRIN 81 MG CHEWABLE TABLETS ONE (14:55)
[2022-05-26 14:58] LABS: ALBUMIN 3.6 g/dl (3.4-5.0); BLOOD UREA NITROGEN 11.5 mg/dL (7-18); CALCIUM 8.9 mg/dL (8.5-10.1)
[2022-05-26 15:01] LABS: CREATININE 0.9 mg/dL (0.55-1.3)
[2022-05-26 15:03] LABS: BILIRUBIN,TOTAL 0.6 mg/dL (0.2-1); TOT PROT 7.9 g/dl (6.4-8.2)
[2022-05-26 15:21] LABS: INR 1.08 (0.83-1.09); PROTHROMBIN TIME (PATIENT) 12.4 SEC (9.7-13.0)
[2022-05-26 17:27] VITALS: BP 104/54; PULSE 67
== END 2022-05-26 18:22 | disposition home or self-care (01) ==
LOC: JER 13:10
DX: R07.9 Chest pain, unspecified (principal)
CPT/HCPCS: 36415; 71045-TC-FY; 80053; 84484; 85025; 85610; 85730; 93005; 93010; 93971-TC; 99285-25; C9803-CS; U0003; U0005

== ENCOUNTER 2024-03-06 23:14 | Emergency (ER) | payer OTHER ==
[2024-03-06 23:23] VITALS: BP 180/86; PULSE 90; RESP 18; TEMP 98.7; BMI 48.8
[2024-03-07] MEDS ORDERED: DEXAMETHASONE SOD PHOSPHATE 10 MG/1 ML VIAL ONE (00:52)
[2024-03-07] MEDS: DEXAMETHASONE SOD PHOSPHATE 10 MG/1 ML VIAL PO ONE (00:55)
== END 2024-03-07 01:20 | disposition home or self-care (01) ==
LOC: JER 23:14
DX: T49.2X1A Poisoning by local astringents and local detergents, accidental (unintentional), initial encounter (principal)
CPT/HCPCS: 87651; 93005; 93010; 99284-25; J1100